=== PATIENT | male | born 1960 | race Caucasian/White ===

== ENCOUNTER 2019-02-24 10:19 | Emergency (ER) | payer BC ==
[~2019-02-24] VITALS: Ht 180.3 cm; Wt 80.3 kg
[2019-02-24 10:25] VITALS: Ht 180.3 cm; Wt 80.3 kg
[2019-02-24 13:45] VITALS: BP 121/80
== END 2019-02-24 13:46 | disposition home or self-care (01) ==
LOC: ED 10:19
DX: S62.632A Displaced fracture of distal phalanx of right middle finger, initial encounter for closed fracture (principal); S61.214A Laceration without foreign body of right ring finger without damage to nail, initial encounter; W45.8XXA Other foreign body or object entering through skin, initial encounter; Y93.89 Activity, other specified; Y92.89 Other specified places as the place of occurrence of the external cause; Y99.8 Other external cause status
CPT/HCPCS: J2001; Q0092